=== PATIENT | female | born 1970 | race Caucasian/White ===

== ENCOUNTER 2018-02-14 05:26 | Day surgery (SDC) | payer OTHER ==
[2018-02-10 15:11] VITALS: BMI 30.1
[2018-02-14] MEDS ORDERED: MIDAZOLAM HCL 2 MG/2 ML SINGLE DOSE VIAL ONE (10:32)
[2018-02-14] MEDS ORDERED: ROCURONIUM BROMIDE 50 MG/5 ML VIAL ONE (10:32)
[2018-02-14] MEDS ORDERED: PROPOFOL 20 ML ONE (10:32)
[2018-02-14] MEDS ORDERED: fentaNYL CITRATE 250 MCG/5 ML VIAL ONE (10:32)
[2018-02-14] MEDS ORDERED: DEXAMETHASONE SOD PHOSPHATE 4 MG/1 ML VIAL ONE (10:33)
[2018-02-14] MEDS ORDERED: LIDOCAINE HCL/PF 2% SDV 5ML VIAL ONE (10:33)
--- NOTE | 2018-02-14 10:57 | HP ---
Past Medical History - Primary Care Physician PCP:: Juan Manuel Cabello - Admission Chief Complaint: menometrorrhagia, fibroid uterus, anemia History of Present Illness: 48 yo f c/o vaginal bleding and spotting for past 3 weeks, heavy bleeding at times , hx of anemia, Hb 8 gm , sono thicken EM ,fibroid uterus, admitted for hysteroscopy D&C polypectomy, rba discussed History Source: Patient Limitations to Obtaining History: No Limitations - Past Medical History Heme/Onc: Yes: Anemia - Past Surgical History Hx Myomectomy: No Hx Transabdominal Cerclage: No - Smoking History Smoking history: Never smoked Aproximately how many cigarettes per day: 0 - Alcohol/Substance Use Hx Alcohol Use: No - Social History History of Recent Travel: No Home Medications - Allergies Allergies/Adverse Reactions: Allergies Allergy/AdvReac Type Severity Reaction Status Date / Time No Known Allergies Allergy Verified 12/30/17 13:18 - Home Medications Home Medications: Ambulatory Orders Ibuprofen [Motrin -] 600 mg PO QID #20 tablet 12/30/17 Review of Systems - Review of Systems Constitutional: reports: Weakness Eyes: reports: No Symptoms HENT: reports: No Symptoms Neck: reports: No Symptoms Cardiovascular: reports: No Symptoms Respiratory: reports: No Symptoms Gastrointestinal: reports: No Symptoms Genitourinary: reports: Vaginal Bleeding Breasts: reports: No Symptoms Reported Musculoskeletal: reports: No Symptoms Integumentary: reports: No Symptoms Neurological: reports: No Symptoms Endocrine: reports: No Symptoms Hematology/Lymphatic: reports: No Symptoms Psychiatric: reports: No Symptoms 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-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 Vital Signs: Vital Signs Temperature 98.3 F 02/14/18 10:21 Pulse Rate 84 02/14/18 10:21 Respiratory Rate 16 02/14/18 10:21 Blood Pressure 121/63 02/14/18 10:21 O2 Sat by Pulse Oximetry (%) Constitutional: Yes: Well Nourished, No Distress, Calm Eyes: Yes: WNL, Conjunctiva Clear, EOM Intact HENT: Yes: WNL, Atraumatic, Normocephalic Neck: Yes: WNL, Supple, Trachea Midline Cardiovascular: Yes: WNL, Regular Rate and Rhythm Respiratory: Yes: WNL, Regular, CTA Bilaterally Gastrointestinal: Yes: WNL ...Rectal Exam: Yes: WNL Renal/: Yes: WNL Vaginal Exam: Yes: Bleeding Cervix: Yes: Normal, Bleeding Uterus: Yes: Enlarged, Lumpy Breast(s): Yes: WNL Musculoskeletal: Yes: WNL Extremities: Yes: WNL Edema: No Integumentary: Yes: WNL Neurological: Yes: WNL, Alert, Oriented ...Motor Strength: WNL Psychiatric: Yes: WNL, Alert, Oriented Problem List - Problem (1) Menometrorrhagia Code(s): N92.1 - EXCESSIVE AND FREQUENT MENSTRUATION WITH IRREGULAR CYCLE (2) Fibroid uterus Code(s): D25.9 - LEIOMYOMA OF UTERUS, UNSPECIFIED Qualifiers: Uterine leiomyoma location: intramural and subserous Qualified Code(s): D25.1 - Intramural leiomyoma of uterus; D25.2 - Subserosal leiomyoma of uterus (3) Anemia Code(s): D64.9 - ANEMIA, UNSPECIFIED Qualifiers: Anemia type: iron deficiency Iron deficiency anemia type: chronic blood loss Qualified Code(s): D50.0 - Iron deficiency anemia secondary to blood loss (chronic) Assessment/Plan hysteroscopy D&C, polypectomy, rba discussed
[2018-02-14] MEDS ORDERED: IBUPROFEN 800 MG/8 ML IJ IVPB PRN (11:38)
[2018-02-14] MEDS ORDERED: oxyCODONE HCL 5 MG TABLET PO PRN (11:38)
[2018-02-14] MEDS ORDERED: ONDANSETRON 4 MG/2 ML VIAL IVPUSH PRN (11:38)
[2018-02-14] MEDS ORDERED: IBUPROFEN 600 MG TABLET (FP) PO PRN (11:38)
[2018-02-14] MEDS ORDERED: ELECTROLYTE-148 SOLN 1,000 ML IV SCH (11:45)
[2018-02-14] MEDS ORDERED: IBUPROFEN 800 MG/8 ML IJ IVPB ONE (11:58)
[2018-02-14] MEDS ORDERED: LACTATED RINGERS SOLUTION 1,000 ML IV SCH (12:00)
--- NOTE | 2018-02-14 12:04 | OP ---
DATE OF OPERATION: 02/14/2018 PREOPERATIVE DIAGNOSES: Menometrorrhagia, anemia, fibroid uterus. POSTOPERATIVE DIAGNOSES: Menometrorrhagia, anemia, fibroid uterus, uterine prolapse. SURGEON: Juan Manuel Cabello MD ANESTHESIA: General. ANESTHESIOLOGIST: Marcelino Andrade MD ESTIMATED BLOOD LOSS: 50 mL DESCRIPTION OF OPERATION: Patient was taken to the operating room. Under adequate general anesthesia in dorsal lithotomy position, examination under anesthesia revealed the external genitalia to be normal. Vagina was normal with small amount of dark blood in the vault. Cervix had no gross lesion but had a second-degree uterine prolapse. Uterus was retroverted with a myoma at the fundal area. Adnexa: No masses were palpable. Then, with the speculum in the vagina, anterior lip of the cervix was grasped with a single-tooth tenaculum, and the uterine cavity was sounded to 9 cm. Then, hysteroscope was introduced. Visualization of endocervical canal appeared to be normal. There was a 2-cm polyp at the mid portion of the uterus, and there was a submucous myoma at the fundal area of the uterus, approximately 3 cm. No other abnormality was seen. Endometrium appeared to be normal. Then, hysteroscope was withdrawn, and then, endometrial polyp was removed. Then, the uterine cavity was curetted in an fashion. Hysteroscope was re-introduced. Complete resection of polyp was done. Patient tolerated the procedure well, left the OR in good condition. eBcky [id number]
[2018-02-14 15:28] VITALS: BP 119/64; PULSE 84; TEMP 98.2
--- NOTE | 2018-02-15 18:03 | PATH ---
Surgical Pathology Report Patient Name: [facility]. Rec. #: [id number] /Age/Gender: 1970 (Age: 47) / F Account: [id number] Location: [facility] SURGICAL Taken: 02/14/2018 Received: 02/14/2018 Reported: 02/15/2018 Physicians: Juan Manuel Cabello M.D. Specimen(s) Received A: ENDOMETRIAL CURETTINGS B: ENDOMETRIUM POLYP Clinical History Intramural leiomyoma of uterus, heavy menstruation Postoperative diagnosis: Endometrial polyp Final Diagnosis A. ENDOMETRIAL CURETTINGS: FRAGMENTS OF ENDOMETRIAL POLYP. SEPARATE MENSTRUAL TYPE ENDOMETRIUM WITH BLOOD CLOT. FRAGMENT OF ENDOMETRIUM WITH DECIDUAL-LIKE STROMA. B. ENDOMETRIAL POLYP, BIOPSY: FRAGMENTS OF ENDOMETRIAL POLYP. FRAGMENT OF ENDOMETRIUM WITH DECIDUAL-LIKE STROMA. SEPARATE FRAGMENTS OF ENDOCERVICAL GLANDS, UNREMARKABLE. Electronically Signed Akash Ibarra M.D. Gross Description A. Received in formalin labeled "endometrial curettings," is a 2.0 x 1.5 x 0.3 cm aggregate of he and red soft tissue fragments. The formalin is filtered and the specimen is entirely submitted in one cassette. B. Received in formalin labeled "endometrial polyp," is a 1.9 x 1.3 x 0.3 cm aggregate of he-pink soft tissue fragments. The specimen is entirely submitted in one cassette. /02/14/201802/14/2018
== END 2018-02-14 15:57 | disposition home or self-care (01) ==
LOC: JASU-SURG 05:26
PROVIDERS: ATTEND Obstetrics & Gynecology
PROC: 0UB98ZX Excision of Uterus, Via Natural or Artificial Opening Endoscopic, Diagnostic (ICD-10-PCS; principal; 2018-02-14 11:00)
PROC: 0UDB7ZX Extraction of Endometrium, Via Natural or Artificial Opening, Diagnostic (ICD-10-PCS; 2018-02-14 11:00)
DX: N92.1 Excessive and frequent menstruation with irregular cycle (principal); D64.9 Anemia, unspecified; D25.0 Submucous leiomyoma of uterus; N81.4 Uterovaginal prolapse, unspecified; N84.0 Polyp of corpus uteri
CPT/HCPCS: 84703; 88305-TC; 94760

== ENCOUNTER 2018-06-05 05:22 | Day surgery (SDC) | payer OTHER ==
[2018-06-02 10:14] VITALS: BMI 30.2
[2018-06-05] MEDS ORDERED: PROPOFOL 20 ML ONE (13:31)
[2018-06-05] MEDS ORDERED: MIDAZOLAM HCL 2 MG/2 ML SINGLE DOSE VIAL ONE (13:31)
[2018-06-05] MEDS ORDERED: DEXAMETHASONE SOD PHOSPHATE 4 MG/1 ML VIAL ONE (14:21)
[2018-06-05] MEDS ORDERED: KETOROLAC TROMETHAMINE 30 MG/1 ML VIAL ONE (14:21)
[2018-06-05] MEDS ORDERED: IBUPROFEN 800 MG/8 ML IJ IVPB PRN (14:47)
[2018-06-05] MEDS ORDERED: ONDANSETRON 4 MG/2 ML VIAL IVPUSH PRN ×2 (14:47→15:04)
[2018-06-05] MEDS ORDERED: IBUPROFEN 600 MG TABLET (FP) PO PRN (14:47)
[2018-06-05] MEDS ORDERED: oxyCODONE HCL 5 MG TABLET PO PRN ×2 (14:47→15:04)
--- NOTE | 2018-06-05 14:48 | HP ---
History & Physical Update - Physical Physical: No Change - Assessment Assessment: No Change - Plan Plan: No Change
[2018-06-05] MEDS ORDERED: ELECTROLYTE-148 SOLN 1,000 ML IV SCH (15:00)
[2018-06-05] MEDS ORDERED: LACTATED RINGERS SOLUTION 1,000 ML IV SCH (15:15)
[2018-06-05] MEDS ORDERED: IBUPROFEN 800 MG/8 ML IJ IVPB ONE ×2 (15:48→16:04)
[2018-06-05 16:41] VITALS: TEMP 98
[2018-06-05] MEDS ORDERED: oxyCODONE HCL 5 MG TABLET ONE (17:20)
[2018-06-05 20:05] VITALS: BP 125/78; PULSE 69
--- NOTE | 2018-06-06 10:31 | OP ---
DATE OF OPERATION: 06/05/2018 PREOPERATIVE DIAGNOSES: 1. Menometrorrhagia. 2. Anemia. POSTOPERATIVE DIAGNOSES: 1. Menometrorrhagia. 2. Anemia. PROCEDURE: Hysteroscopy, dilatation and curettage, and endometrial hydroablation. SURGEON: Juan Manuel Cabello MD ANESTHESIA: General. ESTIMATED BLOOD LOSS: 50 mL. OPERATIVE PROCEDURE: The patient was taken to the operating room and adequate general anesthesia induced. In the dorsal lithotomy position, evaluation under anesthesia revealed external genitalia to be normal. Vagina was normal. Cervix clean, no lesion. Uterus was first-degree prolapsed, retrograded, and prominent. Adnexa, no masses were palpable. Then, with the weighted speculum in the vagina, anterior lip of cervix was grasped with a single-toothed tenaculum. Uterine cavity was sounded to 9 cm. Then, cervix was slightly dilated with Hegar dilator. Hysteroscope was introduced. Visualization of endocervical canal appeared to be normal. Endometrium was irregular and prominent. No submucous myoma was seen. Both cornual regions were identified. Then a dilatation and curettage was done. Then hydroablation device was inserted into the uterine cavity without any difficulty and hydroablation was done without any difficulty. The patient tolerated the procedure well, left the OR in good condition. JUAN MANUEL CABELLO M.D. /[id number]
--- NOTE | 2018-06-07 13:29 | PATH ---
Surgical Pathology Report Patient Name: [facility]. Rec. #: [id number] /Age/Gender: 1970 (Age: 47) / F Account: [id number] Location: [facility] SURGICAL Taken: 06/05/2018 Received: 06/06/2018 Reported: 06/07/2018 Physicians: Juan Manuel Cabello M.D. Specimen(s) Received ENDOMETRIAL CURETTINGS Clinical History Menorrhagia Final Diagnosis ENDOMETRIAL CURETTINGS: PREDOMINANTLY BLOOD. ONE SMALL FRAGMENT OF ENDOMETRIAL POLYP AND SCANTY SUPERFICIAL ENDOMETRIAL GLANDS WITH FOCAL EOSINOPHILIC CHANGE. SEPARATE FEW FRAGMENTS OF UNREMARKABLE ENDOCERVICAL GLANDS. Electronically Signed Akash Ibarra M.D. Gross Description Received in formalin labeled "endometrial curettings," is a 2.3 x 2.3 x 0.3 cm aggregate of he-brown soft tissue fragments admixed with blood clot. The formalin is filtered and the specimen is entirely submitted in one cassette. /06/06/2018 [facility]06/06/2018
== END 2018-06-05 19:00 | disposition home or self-care (01) ==
LOC: JASU-SURG 05:22
PROVIDERS: ATTEND Obstetrics & Gynecology
PROC: 0UDB7ZX Extraction of Endometrium, Via Natural or Artificial Opening, Diagnostic (ICD-10-PCS; 2018-06-05)
PROC: 0U5B8ZZ Destruction of Endometrium, Via Natural or Artificial Opening Endoscopic (ICD-10-PCS; principal; 2018-06-05 14:30)
DX: N92.1 Excessive and frequent menstruation with irregular cycle (principal); D64.9 Anemia, unspecified
CPT/HCPCS: 84703; 88305-TC; 94760

== ENCOUNTER 2018-07-25 11:16 | Emergency (ER) | payer OTHER ==
[2018-07-25 11:51] VITALS: BP 119/59; PULSE 84; TEMP 98; BMI 30.9
[2018-07-25] MEDS ORDERED: diphenhydrAMINE HCL 25 MG CAPSULE (FP) PO ONE ×2 (12:39→12:42)
[2018-07-25] MEDS ORDERED: DEXAMETHASONE LIQUID 0.5 MG/5 ML 240 ML BULK BOTTLE PO ONE (12:39)
[2018-07-25] MEDS ORDERED: DEXAMETHASONE SOD PHOSPHATE 10 MG/1 ML VIAL ONE (12:41)
--- NOTE | 2018-07-25 13:10 | PDOC ---
History of Present Illness - General Chief Complaint: Rash Stated Complaint: RASH Time Seen by Provider: 07/25/18 12:19 - History of Present Illness Initial Comments: 07/25/18 13:07 47-year-old female without comorbidities presents for evaluation of rash times one day Past History - Past Medical History Allergies/Adverse Reactions: Allergies Allergy/AdvReac Type Severity Reaction Status Date / Time No Known Allergies Allergy Verified 07/25/18 11:51 Home Medications: Ambulatory Orders Ibuprofen [Motrin -] 600 mg PO QID #28 tablet 06/05/18 Anemia: Yes Asthma: No Cancer: No Cardiac Disorders: No CVA: No COPD: No CHF: No Dementia: No Diabetes: No GI Disorders: No Disorders: No HTN: No Hypercholesterolemia: No Liver Disease: No Seizures: Yes (last seizure 5 years ago) Thyroid Disease: No - Surgical History Abdominal Surgery: No Appendectomy: No Cardiac Surgery: No Cholecystectomy: Yes GI Surgery: Yes (GASTRIC SLEEVE) Lung Surgery: No Neurologic Surgery: No Orthopedic Surgery: No - Suicide/Smoking/Psychosocial Hx Smoking Status: No Smoking History: Never smoked Have you smoked in the past 12 months: No Number of Cigarettes Smoked Daily: 0 Hx Alcohol Use: No Drug/Substance Use Hx: No Substance Use Type: None Hx Substance Use Treatment: No Review of Systems - Review of Systems Constitutional: No: Chills, Fever, Malaise, Night Sweats HEENTM: No: Throat Pain, Throat Swelling Respiratory: No: Shortness of Breath, Wheezing Integumentary: Yes: See HPI, Pruritus, Rash *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 - Vital Signs Last Vital Signs Temp Pulse Resp BP Pulse Ox 98 F 84 18 119/59 L 99 07/25/18 11:49 07/25/18 11:49 07/25/18 11:49 07/25/18 11:49 07/25/18 11:49 - 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 Comments: 07/25/18 13:08 HEAD: NC/AT EYES: Conjuntiva clear Ears: Canals and TM's normal NOSE: No d/c THROAT: Moist mucous membrances, oral pharanx clear, uvula midline NECK: Supple without adenopathy CARDIAC: S1 S2 LUNGS: CTA Full and Equal breath sounds ABDOMEN: Soft NT ND MS: Full ROM in all joints without edema NEUROLOGIC: No gross sensory or motor deficits, NVID SKIN: Normal color and temperature there are diffuse to raised wheals bilateral upper extremities lower extremities and chest ED Treatment Course - Medications Given in the ED: ED Medications Discontinued Medications Generic Name Dose Route Start Last Admin Trade Name Isidro PRN Reason Stop Dose Admin Dexamethasone 10 mg 07/25/18 12:39 07/25/18 12:43 Decadron Liquid - PO 07/25/18 12:40 10 mg ONCE ONE Administration Diphenhydramine HCl 25 mg 07/25/18 12:39 07/25/18 12:43 Benadryl - PO 07/25/18 12:40 25 mg ONCE ONE Administration Medical Decision Making - Medical Decision Making 07/25/18 13:08 Proved after Decadron and Benadryl I am unsure of the etiology of the rash I have recommended internal medicine follow-up *DC/Admit/Observation/Transfer Diagnosis at time of Disposition: Allergic reaction - Discharge Dispostion Disposition: HOME Condition at time of disposition: Improved Decision to Admit order: No - Referrals Referrals: Georgina Porter MD [Primary Care Provider] - - Patient Instructions Printed Discharge Instructions: DI for General Allergic Reactions Additional Instructions: Continue to take [id number] Benadryl as directed. Return to the emergency room should symptoms worsen or go unresolved. Follow-up with your primary care doctor one day for further evaluation and treatment options. - Post Discharge Activity
== END 2018-07-25 13:13 | disposition home or self-care (01) ==
LOC: JERFT 11:16
DX: T78.40XA Allergy, unspecified, initial encounter (principal); R21 Rash and other nonspecific skin eruption; Z86.69 Personal history of other diseases of the nervous system and sense organs; Z86.2 Personal history of diseases of the blood and blood-forming organs and certain disorders involving the immune mechanism
CPT/HCPCS: 99281-25

== ENCOUNTER 2018-07-27 08:12 | Day surgery (SDC) | payer OTHER ==
[2018-07-27 09:14] VITALS: BMI 31.9
[2018-07-27 10:02] VITALS: TEMP 98.2
--- NOTE | 2018-07-27 10:32 | OP ---
DATE OF OPERATION: 07/27/2018 SURGEON: Johnson Patterson MD ANESTHESIA: MAC POSTOPERATIVE DIAGNOSIS: Weight regain and decreased restriction status post previous vertical sleeve gastrectomy. POSTOPERATIVE DIAGNOSIS: Dilated gastric pouch. SPECIMEN: None. PROCEDURE: Upper endoscopy/esophagogastroduodenoscopy. REASON FOR PROCEDURE: This is a 47-year-old female who presents to the office for weight regain and decreased restriction of her prior vertical sleeve gastrectomy. Because of this, she was consented for an upper endoscopy/EGD. Risks and benefits of the procedure were explained, these included bleeding, infection, MO, DVT, PE, injury to surrounding structure including the oral cavity, esophagus, GE junction, gastric pouch/stomach, and intestines. She understood and signed for consent. DESCRIPTION OF PROCEDURE: Patient was placed in the left lateral decubitus position. A bite block was placed. She underwent MAC by Anesthesia. A timeout was performed. The endoscope was placed into the patient's mouth and inserted into the oral cavity. A timeout was performed. The endoscope was placed into the patient's mouth and inserted into the oral cavity, esophagus, GE junction, gastric pouch up to the level and beyond the level of the pylorus. There was noted to be a dilated gastric pouch on exam consistent with the reason for weight regain. The stomach was suctioned and the scope removed. The patient tolerated the procedure well, transferred to the recovery room in stable condition. JOHNSON PATTERSON M.D. LORI/[id number]
[2018-07-27 10:33] VITALS: PULSE 71
[2018-07-27 11:19] VITALS: BP 135/91
== END 2018-07-27 11:19 | disposition home or self-care (01) ==
LOC: JASU-ENDO 08:12
PROVIDERS: ATTEND Surgery
PROC: 0DJ08ZZ Inspection of Upper Intestinal Tract, Via Natural or Artificial Opening Endoscopic (ICD-10-PCS; principal; 2018-07-27 09:30)
DX: K31.0 Acute dilatation of stomach (principal); R63.5 Abnormal weight gain; Z98.84 Bariatric surgery status
CPT/HCPCS: 84703

== ENCOUNTER 2018-12-17 12:13 | Emergency (ER) | payer OTHER ==
[2018-12-17 12:17] VITALS: TEMP 97.8; BMI 30.9
--- NOTE | 2018-12-17 12:45 | PDOC ---
Attending Attestation - HPI HPI: This patient is a 48 year old female with PMHx h/o fibroids that were removed, who presents with 1 week of worsening lower abdominal pain. She states that the abdominal pain is RLQ, radiates to her right back and down her leg. She states that she has never had this pain before. She states that the pain is at its worst today. She also reports a subjective fever since Tuesday. She states that she has been taking tylenol and she last took tylenol this morning at 8 am. She reports 1 episode of diarrhea last night. She also reports that her friend from [facility] came yesterday and she drank liquor which she does not normally do. She comes to the ED today because she is still in a lot of pain. Denies any dysuria. No nausea, vomiting. Surgical Hx: Tubal ligation. (Post menopausal - last period 5 mos ago) - Physicial Exam PE: GENERAL: Awake, alert, and fully oriented, in no acute distress HEAD: No signs of trauma EYES: PERRLA, EOMI, sclera anicteric, conjunctiva clear NECK: Normal ROM, supple, no lymphadenopathy, JVD, or masses LUNGS: Breath sounds equal, clear to auscultation bilaterally. No wheezes, and no crackles HEART: Regular rate and rhythm, normal S1 and S2, no murmurs, rubs or gallops ABDOMEN: Soft, postive rovsing, mcburneys, obturator, psoas sign, normoactive bowel sounds. EXTREMITIES: Normal range of motion, no edema. No clubbing or cyanosis. No cords, erythema, or tenderness NEUROLOGICAL: Cranial nerves II through XII grossly intact. Normal speech. SKIN: Warm, Dry, normal turgor, no rashes or lesions noted. <Nicole Zarate - Last Filed: 12/17/18 13:58> - Resident Resident Name: Ovi Fairchild - ED Attending Attestation I have performed the following: I have examined & evaluated the patient, The case was reviewed & discussed with the resident, I agree w/resident's findings & plan, Exceptions are as noted - Medical Decision Making 12/17/18 12:45 I, Dr. Tanisha Jackson, DO, attest that this document has been prepared under my direction and personally reviewed by me in its entirety. I further attest, that it accurately reflects all work, treatment, procedures and medical decision -making performed by me. 12/17/18 13:14 a/p: 48yo female with RLQ pain x 1 week, diarrhea, and fever (subjective) yesterday -nausea today, no vomiting -admits to drinking whiskey last night -Pt with rovsing, mcburneys, obturator, psoas sign + -suspect acute appendicitis -will send labs, npo, ivf hydration, ct abd/pelvis 12/17/18 16:05 no acute appy on ultrasound ordered tvus to eval for persistent RLQ pain -labs reviewed tvus shows a myomatous uterus 12/17/18 16:18 pt is stable for dc to home needs to follow up with her MANAGER MONEY <Tanisha Jackson - Last Filed: 12/17/18 16:18> Attestations - Attestations 12/17/18 13:57 Documentation prepared by Nicole Zarate, acting as medical supply technician for Tanisha Jackson DO. <Nicole Zarate - Last Filed: 12/17/18 13:58>
[2018-12-17 12:56] LABS: BASO % 0.8 % (0-2.0); EOS % 0.8 % (0-4.5); HEMATOCRIT 34.3 % (32.4-45.2); LYMPH % 21.5 % (8-40); MCH 22.7 pg (25.7-33.7); MEAN CELL VOLUME 70.9 fl (80-96); MEAN PLT VOLUME 7.5 fl (7.5-11.1); MONO % 7.5 % (3.8-10.2); NEUT % 69.4 % (42.8-82.8); PLATELET COUNT 366 K/MM3 (134-434); RBC 4.83 M/mm3 (3.60-5.2); RDW 17.2 % (11.6-15.6); WHITE BLOOD COUNT 7.5 K/mm3 (4.0-10.0)
[2018-12-17 13:13] LABS: PROTHROMBIN TIME (PATIENT) 11.8 SEC (9.7-13.0)
--- NOTE | 2018-12-17 13:13 | PDOC ---
History of Present Illness - General Chief Complaint: Pain Stated Complaint: LF SIDE ABD PAIN Time Seen by Provider: 12/17/18 12:23 - History of Present Illness Initial Comments: 12/17/18 13:01 48F with no pmh presents with one week long LRQ abdominal pain worsening to day associated with subjective fever yesterday and one episode of diarrhea yesterday. History of tubal ligation 14 years ago. lmp was 5month ago 12/17/18 14:19 Past History - Past Medical History Allergies/Adverse Reactions: Allergies Allergy/AdvReac Type Severity Reaction Status Date / Time No Known Allergies Allergy Verified 12/17/18 12:17 Home Medications: Ambulatory Orders NK [No Known Home Medication] 12/17/18 Anemia: Yes Asthma: No Cancer: No Cardiac Disorders: No CVA: No COPD: No CHF: No Dementia: No Diabetes: No GI Disorders: No Disorders: No HTN: No Hypercholesterolemia: No Liver Disease: No Seizures: Yes (last seizure 5 years ago) Thyroid Disease: No - Surgical History Abdominal Surgery: No Appendectomy: No Cardiac Surgery: No Cholecystectomy: Yes GI Surgery: Yes (GASTRIC SLEEVE) Lung Surgery: No Neurologic Surgery: No Orthopedic Surgery: No - Suicide/Smoking/Psychosocial Hx Smoking Status: No Smoking History: Never smoked Have you smoked in the past 12 months: No Number of Cigarettes Smoked Daily: 0 Hx Alcohol Use: No Drug/Substance Use Hx: No Substance Use Type: None Hx Substance Use Treatment: No Review of Systems - Review of Systems Able to Perform ROS?: Yes Is the patient limited Haitian proficient: No Constitutional: No: Symptoms Reported HEENTM: No: Symptoms Reported Respiratory: No: Symptoms reported Cardiac (ROS): No: Symptoms Reported ABD/GI: Yes: See HPI : No: Symptoms Reported Musculoskeletal: No: Symptoms Reported Integumentary: No: Symptoms Reported Neurological: No: Symptoms reported *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 - Vital Signs Last Vital Signs Temp Pulse Resp BP Pulse Ox 97.8 F 85 18 132/73 97 12/17/18 12:14 12/17/18 12:14 12/17/18 12:14 12/17/18 12:14 12/17/18 12:14 - 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 General Appearance: Yes: Nourished, Appropriately Dressed. No: Apparent Distress HEENT: positive: EOMI, CHRISTINE, Normal ENT Inspection Respiratory/Chest: positive: Lungs Clear, Normal Breath Sounds. negative: Chest Tender, Respiratory Distress Cardiovascular: positive: Regular Rhythm, Regular Rate, S1, S2 Gastrointestinal/Abdominal: positive: Other (tender lrq at mcburneys) Musculoskeletal: positive: Normal Inspection. negative: CVA Tenderness Extremity: positive: Normal Capillary Refill, Normal Inspection, Normal Range of Motion Neurologic: positive: Fully Oriented, Alert, Normal Mood/Affect, Normal Response , Motor Strength / ED Treatment Course - LABORATORY CBC & Chemistry Diagram: 12/17/18 12:44 12/17/18 12:44 - ADDITIONAL ORDERS Additional order review: 12/17/18 12:44 RBC 4.83 MCV 70.9 L MCHC 32.0 RDW 17.2 H MPV 7.5 Neutrophils % 69.4 D Lymphocytes % 21.5 D Monocytes % 7.5 Eosinophils % 0.8 Basophils % 0.8 - RADIOLOGY Radiology Studies Ordered: Category Date Time Status ABDOMEN & PELVIS CT WITH CONTR [CT] Stat CT Scan 12/17/18 12:40 Ordered Medical Decision Making - Medical Decision Making 12/17/18 14:23 High suspicion for appendicitis. + psoas and obturator sign. Will obtain basic labs, ct abdomen/pelvis with iv contrast 12/17/18 16:[address] for appendicitis. TVU read: myomatous uterus. Willd/c with nsaid and obgyn follow up 12/17/18 16:17 *DC/Admit/Observation/Transfer Diagnosis at time of Disposition: Fibroid uterus - Discharge Dispostion Disposition: HOME Condition at time of disposition: Improved Decision to Admit order: No - Referrals - Patient Instructions Printed Discharge Instructions: DI for Myomectomy, DI for Uterine Fibroids Additional Instructions: Follow up with your OBGYN. Come back for any, new, worsening or concerning symptoms - Post Discharge Activity
[2018-12-17 13:16] LABS: ACTIVATED PTT 27.5 SECONDS (25.2-36.5)
[2018-12-17] MEDS ORDERED: ONDANSETRON 4 MG/2 ML VIAL IVPUSH ONE (13:43)
[2018-12-17] MEDS ORDERED: ACETAMINOPHEN 1000 MG/100 ML VIAL (NON FORMULARY) IVPB ONE (13:43)
[2018-12-17] MEDS ORDERED: SODIUM CHLORIDE 0.9% 1000 ML INFUS.BAG IV ONE (13:43)
[2018-12-17] MEDS ORDERED: FAMOTIDINE 20 MG/50 ML IVPB 20 MG/50 ML MG IVPB ONE ×2 (13:45→14:39)
[2018-12-17 13:50] LABS: EPI CELLS 4.6 /HPF (0-5); URINE APPEARANCE CLEAR; URINE BACTERIA 15.9 /hpf (NEGATIVE); URINE BILIRUBIN NEGATIVE (NEGATIVE); URINE CASTS 10 /hpf (0-8); URINE COLOR YELLOW; URINE GLUCOSE (UA) NEGATIVE (NEGATIVE); URINE KETONE TRACE (NEGATIVE); URINE LEUK ESTERASE NEGATIVE (NEGATIVE); URINE NITRITE NEGATIVE (NEGATIVE); URINE PROTEIN NEGATIVE (NEGATIVE); URINE RBC 26 /hpf (0-4); URINE WBC 2 /hpf (0-5)
[2018-12-17 13:55] LABS: ALBUMIN 3.5 g/dl (3.4-5.0); ALK PHOS 131 U/L (45-117); ANION GAP 7 MMOL/L (8-16); BILIRUBIN,TOTAL 0.4 mg/dL (0.2-1); BLOOD UREA NITROGEN 11 mg/dL (7-18); CALCIUM 8.4 mg/dL (8.5-10.1); CHLORIDE 107 mmol/L (98-107); CO2 23 mmol/L (21-32); CREATININE 0.6 mg/dL (0.55-1.3); GLUCOSE,RANDOM 84 mg/dL (74-106); POTASSIUM 5.1 mmol/L (3.5-5.1); SGOT/AST 44 U/L (15-37); SGPT/ALT 27 U/L (13-61); SODIUM 137 mmol/L (136-145); TOT PROT 7.9 g/dl (6.4-8.2)
[2018-12-17] MEDS ORDERED: ACETAMINOPHEN INJECTION 100 ML IVPB ONE (14:39)
[2018-12-17] MEDS ORDERED: ONDANSETRON 4 MG/2 ML VIAL ONE (14:39)
[2018-12-17] MEDS ORDERED: KETOROLAC TROMETHAMINE 15 MG/ML VIAL IVPUSH ONE (16:05)
[2018-12-17] MEDS ORDERED: KETOROLAC TROMETHAMINE 15 MG/ML VIAL ONE (16:56)
[2018-12-17 17:16] VITALS: BP 128/72; PULSE 80
== END 2018-12-17 17:00 | disposition home or self-care (01) ==
LOC: JER 12:13
PROC: 3E033GC Introduction of Other Therapeutic Substance into Peripheral Vein, Percutaneous Approach (ICD-10-PCS; principal; 2018-12-17)
PROC: 3E033GC Introduction of Other Therapeutic Substance into Peripheral Vein, Percutaneous Approach (ICD-10-PCS; 2018-12-17)
PROC: 3E033NZ Introduction of Analgesics, Hypnotics, Sedatives into Peripheral Vein, Percutaneous Approach (ICD-10-PCS; 2018-12-17)
PROC: 3E0333Z Introduction of Anti-inflammatory into Peripheral Vein, Percutaneous Approach (ICD-10-PCS; 2018-12-17)
DX: D25.9 Leiomyoma of uterus, unspecified (principal)
CPT/HCPCS: 36415; 74177-TC; 76830-TC; 80053; 81003; 84703; 85025; 85610; 85730; 86850; 86900; 86901; 87086; 96365; 96375; 99282-25; J0131; J7030

== ENCOUNTER 2019-09-03 18:55 | Emergency (ER) | payer OTHER ==
--- NOTE | 2019-09-03 19:18 | PDOC ---
Rapid Medical Evaluation Time Seen by Provider: 09/03/19 19:15 Medical Evaluation: Allergies Allergy/AdvReac Type Severity Reaction Status Date / Time No Known Allergies Allergy Verified 12/17/18 12:17 09/03/19 19:15 This patient received a in-person evaluation in triage cc/HPI: lower back pain x 3 days seen by email marketing executive today and told she had blood in urine PE: NAD mild tenderness over supra pubis + right cva tendernes orders:urine This patient will proceed to ED for further evaluation Discharge Disposition - Diagnosis Lower back pain - Referrals - Patient Instructions - Post Discharge Activity
[2019-09-03 19:19] VITALS: BP 132/65; PULSE 80; TEMP 98.1; BMI 30.9
--- NOTE | 2019-09-03 20:45 | PDOC ---
History of Present Illness - General Chief Complaint: Pain, Acute Stated Complaint: HEMATURIA Time Seen by Provider: 09/03/19 19:15 History Source: Patient Exam Limitations: No Limitations - History of Present Illness Initial Comments: 09/03/19 20:40 48y F with PMH of Endometriosis, remote history of seizure disorder (not taking medications anymore) presenting to ED with R flank pain, dysuria and lower abdominal pain. She saw her morgue keeper today (Dr. Cabello) today and he told her she had blood in the urine and advised her to be seen if the pain got worse. She states that she has had similar symptoms in the past and was hospitalized. She states the pain started 3 days ago and endorses subjective fevers with chills. Endorses dysuria, frequency, urgency and R flank pain radiating to the legs. Denies gross hematuria, diarrhea, vomiting, chest pain, sob, headache, weakness. PMD: PMH: see hpi PSH: tubal ligation Meds: none Social: denies obgyn: [facility] Past History - Past Medical History Allergies/Adverse Reactions: Allergies Allergy/AdvReac Type Severity Reaction Status Date / Time No Known Allergies Allergy Verified 09/03/19 19:19 Home Medications: Ambulatory Orders NK [No Known Home Medication] 12/17/18 Anemia: Yes Asthma: No Cancer: No Cardiac Disorders: No CVA: No COPD: No CHF: No Dementia: No Diabetes: No GI Disorders: No Disorders: No HTN: No Hypercholesterolemia: No Liver Disease: No Seizures: Yes (last seizure 5 years ago) Thyroid Disease: No - Surgical History Abdominal Surgery: No Appendectomy: No Cardiac Surgery: No Cholecystectomy: Yes GI Surgery: Yes (GASTRIC SLEEVE) Lung Surgery: No Neurologic Surgery: No Orthopedic Surgery: No - Reproductive History Is Patient Now?: No - Psycho Social/Smoking Cessation Hx Smoking Status: No Smoking History: Never smoked Have you smoked in the past 12 months: No Number of Cigarettes Smoked Daily: 0 Hx Alcohol Use: No Drug/Substance Use Hx: No Substance Use Type: None Hx Substance Use Treatment: No Review of Systems - Review of Systems Constitutional: Yes: See HPI HEENTM: No: Symptoms Reported Respiratory: No: Symptoms reported Cardiac (ROS): No: Symptoms Reported ABD/GI: Yes: See HPI : Yes: See HPI Musculoskeletal: No: Symptoms Reported Integumentary: No: Symptoms Reported Neurological: No: Symptoms reported *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 - Vital Signs Last Vital Signs Temp Pulse Resp BP Pulse Ox 98.1 F 80 16 132/65 100 09/03/19 19:17 09/03/19 19:17 09/03/19 19:17 09/03/19 19:17 09/03/19 19:17 - 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 General Appearance: Yes: Nourished, Appropriately Dressed. No: Apparent Distress HEENT: positive: EOMI, CHRISTINE, Normal ENT Inspection Neck: positive: Trachea midline, Supple Respiratory/Chest: positive: Lungs Clear, Normal Breath Sounds. negative: Crackles, Rhonchi, Stridor, Wheezing Cardiovascular: positive: Regular Rhythm, Regular Rate, S1, S2. negative: Edema , JVD, Murmur Gastrointestinal/Abdominal: positive: Normal Bowel Sounds, Soft, Tenderness ( suprapubic) Musculoskeletal: positive: CVA Tenderness (R). negative: CVA Tenderness (L) Extremity: positive: Normal Capillary Refill. negative: Swelling, Calf Tenderness, Erythema, Inflammation Integumentary: positive: Normal Color, Dry, Warm Neurologic: positive: kiln operator II-XII NML intact, Fully Oriented, Alert, Normal Mood/ Affect, Normal Response, Motor Strength / ED Treatment Course - LABORATORY CBC & Chemistry Diagram: 09/03/19 20:45 09/03/19 20:45 Medical Decision Making - Medical Decision Making 09/03/19 21:05 48y F with PMH of endometriosis presenting with R flank pain, dysuria, frequency and urgency x3d. vitals: wnl PE: R cva tenderness, suprapubic tenderness ddx includes but not limited to uteral stone, pyelonephritis, uti, endometriosis , torsion, pid, low suspicion for torsion given location of pain and duration. pt saw morgue keeper today. -cbc, cmp, ua, ucx, upreg -iv fluids, ofirmev -spiral ct labs wnl, ua 1+ blood, no bacteria. will get ct. CT shows possible hemangioma in liver otherwise no nephrolithiasis. pt given toradol for pain. normal labs, no sstones on ct. likely endometriosis related. has morgue keeper to f/u with. safe for dc home Discharge - Discharge Information Problems reviewed: Yes Clinical Impression/Diagnosis: Flank pain Abdominal pain Qualifiers: Abdominal location: lower abdomen, unspecified Qualified Code(s): R10.30 - Lower abdominal pain, unspecified Condition: Improved Disposition: HOME - Follow up/Referral - Patient Discharge Instructions Patient Printed Discharge Instructions: DI for Abdominal Pain-Adult, DI for Flank Pain Additional Instructions: You were seen in the emergency room today for pain and blood in the urine. You do have microscopic blood in the urine but there is no kidney stone or signs of infection. The kidneys are functioning fine. This could be due to endometriosis. I recommend that you follow up with your primary care doctor, morgue keeper and a kidney doctor (referral is provided below). You can take ibuprofen or Advil for the pain as needed. come back to the emergency room for worsening pain, vomiting, fever, chest pain or if any new or concerning symptom develops. Thank you - Post Discharge Activity
[2019-09-03 20:54] LABS: EPI CELLS 0.3 /HPF (0-5/HPF); HYALINE CASTS 0 /lpf (0-8); PH,URINE 6.5 (5.0-8.0); URINE APPEARANCE CLEAR; URINE BACTERIA 1.2 /hpf (NEGATIVE); URINE BILIRUBIN NEGATIVE (NEGATIVE); URINE COLOR YELLOW; URINE GLUCOSE (UA) NEGATIVE (NEGATIVE); URINE KETONE NEGATIVE (NEGATIVE); URINE LEUK ESTERASE NEGATIVE (NEGATIVE); URINE NITRITE NEGATIVE (NEGATIVE); URINE PROTEIN NEGATIVE (NEGATIVE); URINE RBC 3 /hpf (0-4); URINE UROBILINOGEN 0.2 mg/dL (0.2-1.0); URINE WBC 0 /hpf (0-5)
[2019-09-03] MEDS ORDERED: ACETAMINOPHEN 1000 MG/100 ML VIAL (NON FORMULARY) IVPB ONE (20:59)
[2019-09-03] MEDS ORDERED: SODIUM CHLORIDE 1,000 ML IV STA (20:59)
[2019-09-03 21:00] LABS: BASO % 1.1 % (0-2.0); EOS % 0.7 % (0-4.5); HEMATOCRIT 32.8 % (32.4-45.2); HEMOGLOBIN 10.4 GM/dL (10.7-15.3); LYMPH % 31.7 % (8-40); MCH 23.2 pg (25.7-33.7); MCHC 31.7 g/dl (32.0-36.0); MEAN CELL VOLUME 73.2 fl (80-96); MEAN PLT VOLUME 7.8 fl (7.5-11.1); NEUT % 58.5 % (42.8-82.8); PLATELET COUNT 330 K/MM3 (134-434); RBC 4.49 M/mm3 (3.60-5.2); RDW 16.6 % (11.6-15.6); WHITE BLOOD COUNT 9.4 K/mm3 (4.0-10.0)
[2019-09-03] MEDS ORDERED: ACETAMINOPHEN INJECTION 100 ML IVPB ONE (21:03)
[2019-09-03 21:23] LABS: ALBUMIN 3.6 g/dl (3.4-5.0); BILIRUBIN,TOTAL 0.2 mg/dL (0.2-1); CALCIUM 8.5 mg/dL (8.5-10.1); CREATININE 0.7 mg/dL (0.55-1.3); POTASSIUM 3.7 mmol/L (3.5-5.1); TOT PROT 7.2 g/dl (6.4-8.2)
[2019-09-04] MEDS ORDERED: KETOROLAC TROMETHAMINE 15 MG/ML VIAL ONE (00:25)
[2019-09-04] MEDS ORDERED: KETOROLAC TROMETHAMINE 15 MG/ML VIAL IVPUSH ONE (00:25)
--- NOTE | 2019-09-04 04:46 | PDOC ---
Attending Attestation - Resident Resident Name: Ni Amaya - ED Attending Attestation I have performed the following: I have examined & evaluated the patient, The case was reviewed & discussed with the resident, I agree w/resident's findings & plan - HPI HPI: 09/04/19 04:44 see resident hpi 09/04/19 04:45 - Physicial Exam PE: 09/04/19 04:45 see resident exam - Medical Decision Making 09/04/19 04:46 48-year-old female with flank pain and hematuria per her [employer] CT scan of the abdomen and pelvis shows no significant intrarenal/ abnormality There is microscopic hematuria present Patient will be discharged to follow-up with her regular physician as well as nephrology for further work-up She is comfortable status post Toradol
== END 2019-09-04 01:28 | disposition home or self-care (01) ==
LOC: JER 18:55
PROC: 3E033NZ Introduction of Analgesics, Hypnotics, Sedatives into Peripheral Vein, Percutaneous Approach (ICD-10-PCS; principal; 2019-09-03)
PROC: 3E0333Z Introduction of Anti-inflammatory into Peripheral Vein, Percutaneous Approach (ICD-10-PCS; 2019-09-03)
DX: R10.30 Lower abdominal pain, unspecified (principal); Z98.84 Bariatric surgery status; R56.9 Unspecified convulsions
CPT/HCPCS: 36415; 74176-TC; 80053; 81003; 84703; 85025; 87086; 99283-25; J0131; J7030

== ENCOUNTER 2021-02-02 16:11 | Emergency (ER) | payer OTHER ==
[2021-02-02 16:17] VITALS: BP 137/79; PULSE 76; TEMP 97.8
[2021-02-02] MEDS ORDERED: DIPHTH,PERTUSS(ACELL),TET 0.5 ML DISP.SYRIN IM ONE (17:12)
[2021-02-02] MEDS ORDERED: DIPHTH,PERTUSS(ACELL),TET PED 0.5 ML VIAL IM ONE (18:15)
== END 2021-02-02 17:00 | disposition home or self-care (01) ==
LOC: JER 16:11
PROC: 0HQGXZZ Repair Left Hand Skin, External Approach (ICD-10-PCS; principal; 2021-02-02)
PROC: 3E0234Z Introduction of Serum, Toxoid and Vaccine into Muscle, Percutaneous Approach (ICD-10-PCS; 2021-02-02)
DX: S61.213A Laceration without foreign body of left middle finger without damage to nail, initial encounter (principal)
CPT/HCPCS: 12001-25; 90471; 99284-25

== ENCOUNTER 2022-06-07 05:21 | Day surgery (SDC) | payer OTHER ==
[2022-06-03 09:22] VITALS: BMI 30.4
[2022-06-07] MEDS ORDERED: KETOROLAC TROMETHAMINE 30 MG/1 ML VIAL ONE (15:57)
[2022-06-07] MEDS ORDERED: MIDAZOLAM HCL 2 MG/2 ML SINGLE DOSE VIAL ONE (15:57)
[2022-06-07] MEDS ORDERED: PROPOFOL 20 ML ONE (15:57)
[2022-06-07 16:40] VITALS: RESP 18
[2022-06-07 18:28] VITALS: BP 134/81; PULSE 71; TEMP 98
== END 2022-06-07 18:30 | disposition home or self-care (01) ==
LOC: JASU-SURG 05:21
PROVIDERS: ATTEND Urology
PROC: 0TF4XZZ Fragmentation in Left Kidney Pelvis, External Approach (ICD-10-PCS; principal; 2022-06-07 14:00)
DX: N20.0 Calculus of kidney (principal)

== ENCOUNTER 2022-12-20 04:31 | Day surgery (SDC) | payer OTHER ==
[2022-12-15 11:45] VITALS: BMI 29.2
[2022-12-20 14:20] VITALS: RESP 20
[2022-12-20] MEDS ORDERED: MIDAZOLAM HCL 2 MG/2 ML SINGLE DOSE VIAL ONE (15:21)
[2022-12-20 18:15] VITALS: TEMP 97.5
[2022-12-20 18:21] VITALS: BP 128/71; PULSE 69
== END 2022-12-20 17:21 | disposition home or self-care (01) ==
LOC: JASU-SURG 04:31
PROVIDERS: ATTEND Urology
PROC: 0TF3XZZ Fragmentation in Right Kidney Pelvis, External Approach (ICD-10-PCS; principal; 2022-12-20 15:00)
DX: N20.0 Calculus of kidney (principal)